=== PATIENT | female | born 1965 | race African-American/Black ===

== ENCOUNTER 2016-12-16 11:16 | Emergency (ER) | payer SELFPAY ==
[2016-12-16] MEDS ORDERED: Ondansetron HCl/PF 4 MG/2 ML Vial ONE (12:02)
[2016-12-16 12:23] LABS: ALT (SGPT) 19 U/L (8-55); AST (SGOT) 18 U/L (5-34); Albumin 3.4 g/dL (3.5-5.0); Alkaline Phosphatase 87 U/L (40-150); Anion Gap 14 mmol/L (10-20); BUN (Urea Nitrogen) 16 mg/dL (7.0-18.7); Bilirubin, Total 0.3 mg/dL (0.2-1.2); Calc. Creatinine Clearance 0 mL/min (70-130); Calcium 8.4 mg/dL (7.8-10.44); Carbon Dioxide 23 mmol/L (22-29); Chloride 104 mmol/L (98-107); Estimated GFR-MDRD 82; Globulin 3.2 g/dL (2.4-3.5); Glucose 101 mg/dL (70-105); Potassium 3.9 mmol/L (3.5-5.1); Protein, Total 6.6 g/dL (6.0-8.3); Sodium 137 mmol/L (136-145)
[2016-12-16 12:25] LABS: CKMB 0.4 ng/mL (0-6.6); Troponin I Less than 0.010 ng/mL (< 0.028)
[2016-12-16 12:30] LABS: #Basophils 0.1 thou/uL (0.0-0.2); #Eosinphils 0.1 thou/uL (0.0-0.7); #Lymphocytes 1.6 thou/uL (1.20-3.40); %Basophils 0.6 % (0.0-1.0); %Eosinophils 0.8 % (0.0-10.0); %Lymphocytes 12.2 % (21.0-51.0); %Monocytes 8.1 % (0.0-10.0); %Neutrophils 78.3 % (42.0-75.0); Differential Comment SCANNED; Hemoglobin 11.4 g/dL (12.0-16.0); Mean Corpuscular HGB CONC 32.3 g/dL (32.0-36.0); Mean Corpuscular Hemoglobin 28.4 pg (27.0-31.0); Mean Corpuscular Volume 88.1 fl (81.0-99.0); Mean Platelet Volume 5.9 fL (7.4-10.4); Platelet Count 249 thou/uL (130-400); RBC Distribution Width 13.7 % (11.5-14.5); Red Blood Cell (RBC) Count 4.02 mill/uL (4.20-5.40); White Blood Cell (WBC) Count 12.8 thou/uL (4.8-10.8)
--- NOTE | 2016-12-16 12:59 | CT ---
CT BRAIN WITHOUT CONTRAST: Date: 12/16/16 HISTORY: Headache. FINDINGS: No evidence of acute infarct, hemorrhage, midline shift, or abnormal extra-axial fluid collections a re seen. The ventricular size is normal and the basilar cisterns are patent. The bony calvarium is i ntact. The visualized paranasal sinuses and mastoid air cells are well aerated. IMPRESSION: No CT evidence of acute intracranial process. POS: [facility]
--- NOTE | 2016-12-16 13:01 | RAD ---
PA AND LATERAL VIEWS OF CHEST: Date: 12/16/16 HISTORY: Chest pain. FINDINGS: The heart size is normal. The lungs are well expanded without focal areas of consolidation, pneumoth orax, or pleural effusions. No acute osseous abnormalities are seen. IMPRESSION: No radiographic evidence of acute cardiopulmonary process. POS: [facility]
== END 2016-12-16 14:32 | disposition short-term general hospital (02) ==
LOC: NAV ERS 11:16
DX: G45.9 Transient cerebral ischemic attack, unspecified (principal); F17.210 Nicotine dependence, cigarettes, uncomplicated
CPT/HCPCS: 70450; 71020; 80053; 82553; 84484; 85025; 93005; 94760; 96374; 96375; J2270; J2405

== ENCOUNTER 2017-08-12 19:04 | Emergency (ER) | payer OTHER, SELFPAY ==
[2017-08-12] MEDS ORDERED: Ibuprofen 800 MG TAB ONE (19:45)
[2017-08-12] MEDS ORDERED: Cyclobenzaprine 10 MG TAB ONE (19:45)
== END 2017-08-12 19:52 | disposition home or self-care (01) ==
LOC: NAV ERS 19:04
DX: S16.1XXA Strain of muscle, fascia and tendon at neck level, initial encounter (principal); S29.012A Strain of muscle and tendon of back wall of thorax, initial encounter; G43.909 Migraine, unspecified, not intractable, without status migrainosus; F41.9 Anxiety disorder, unspecified; F32.9 Major depressive disorder, single episode, unspecified; F17.210 Nicotine dependence, cigarettes, uncomplicated; V49.9XXA Car occupant (driver) (passenger) injured in unspecified traffic accident, initial encounter
CPT/HCPCS: 99283

== ENCOUNTER 2018-08-12 17:12 | Emergency (ER) | payer SELFPAY | END 2018-08-12 17:45 | disposition home or self-care (01) | LOC: NAV ERS 17:12 | DX: J01.80 Other acute sinusitis (principal); G43.909 Migraine, unspecified, not intractable, without status migrainosus; F41.9 Anxiety disorder, unspecified; F32.9 Major depressive disorder, single episode, unspecified; F17.210 Nicotine dependence, cigarettes, uncomplicated | CPT/HCPCS: 99283 ==

== ENCOUNTER 2018-08-25 17:24 | Emergency (ER) | payer SELFPAY | END 2018-08-25 18:02 | disposition home or self-care (01) | LOC: NAV ERS 17:24 | DX: M79.672 Pain in left foot (principal); I10 Essential (primary) hypertension; G43.909 Migraine, unspecified, not intractable, without status migrainosus; F41.9 Anxiety disorder, unspecified; F32.9 Major depressive disorder, single episode, unspecified; F17.210 Nicotine dependence, cigarettes, uncomplicated | CPT/HCPCS: 99281 ==

== ENCOUNTER 2018-11-20 17:47 | Emergency (ER) | payer SELFPAY ==
[2018-11-20 19:17] LABS: PTT 30.2 SEC (22.9-36.1); Prothrombin Time 13.5 SEC (12.0-14.7)
[2018-11-20 19:27] LABS: Hemoglobin 12.3 g/dL (12.0-16.0); Mean Corpuscular HGB CONC 31.8 g/dL (32.0-36.0); Mean Corpuscular Hemoglobin 28.1 pg (27.0-31.0); Mean Corpuscular Volume 88.3 fL (78.0-98.0); Mean Platelet Volume 5.8 fL (7.4-10.4); Platelet Count 319 thou/uL (130-400); RBC Distribution Width 13.8 % (11.5-14.5); Red Blood Cell (RBC) Count 4.37 mill/uL (4.20-5.40); White Blood Cell (WBC) Count 8.3 thou/uL (4.8-10.8)
[2018-11-20 19:30] LABS: BHCG - Serum Negative (NEGATIVE); Pregs Control Bar Appear? YES (CONTROL BAR)
[2018-11-20 19:38] LABS: Band 1 % (5-11); Hypochromia SLIGHT = 6-15 cells (100X) (0-5/hpf); Lymphocytes 39 % (21-51); MDiff Complete? YES; Monocytes 4 % (0-10); Neutrophil 56 % (42-75); Platelet Morphology Comment Appears Adequate
[2018-11-20] MEDS ORDERED: Ibuprofen 800 MG TAB ONE (19:57)
== END 2018-11-20 20:00 | disposition home or self-care (01) ==
LOC: NAV ERS 17:47
DX: N93.9 Abnormal uterine and vaginal bleeding, unspecified (principal); G43.909 Migraine, unspecified, not intractable, without status migrainosus; F41.9 Anxiety disorder, unspecified; F32.9 Major depressive disorder, single episode, unspecified; F17.210 Nicotine dependence, cigarettes, uncomplicated
CPT/HCPCS: 84703; 85025; 85610; 85730; 99284

== ENCOUNTER 2019-03-06 12:50 | Emergency (ER) | payer SELFPAY | END 2019-03-06 13:51 | disposition home or self-care (01) | LOC: NAV ERS 12:50 | DX: R19.7 Diarrhea, unspecified (principal); R09.81 Nasal congestion; F41.9 Anxiety disorder, unspecified; F32.9 Major depressive disorder, single episode, unspecified; F17.210 Nicotine dependence, cigarettes, uncomplicated; G43.909 Migraine, unspecified, not intractable, without status migrainosus | CPT/HCPCS: 99281 ==

== ENCOUNTER 2019-12-06 15:30 | Emergency (ER) | payer SELFPAY | END 2019-12-06 16:19 | disposition home or self-care (01) | LOC: NAV ERS 15:30 | DX: R51 Headache (principal); R11.2 Nausea with vomiting, unspecified; F41.9 Anxiety disorder, unspecified; F32.9 Major depressive disorder, single episode, unspecified; F17.210 Nicotine dependence, cigarettes, uncomplicated | CPT/HCPCS: 99283 ==